=== PATIENT | female | born 1945 | race Hispanic/Latino ===

== ENCOUNTER → 2018-09-21 | Outpatient (CLI) | payer MEDICARE ==
[~2018-09-21] MED LIST: ALEN70TA10 PO; ASPI-1181 PO; ATOR40TA71 PO; CLOP75TA14 PO; FERS325 PO; ISOS30TA6 PO; LISI10TA7 PO; NAPR-1192 PO; PANT40TA25 PO; SERT50TA12 PO; TRAZ-185 PO
== END | disposition home or self-care (01) ==
LOC: RAH 10:08
PROVIDERS: ATTEND Orthopaedic Surgery
DX: S83.242A Other tear of medial meniscus, current injury, left knee, initial encounter (principal); M25.462 Effusion, left knee; M94.262 Chondromalacia, left knee; X58.XXXA Exposure to other specified factors, initial encounter; Y93.89 Activity, other specified; Y92.89 Other specified places as the place of occurrence of the external cause; Y99.8 Other external cause status
CPT/HCPCS: 73721

== ENCOUNTER 2018-12-11 06:51 | Day surgery (SDC) | payer MEDICARE ==
[2018-12-10 15:12] LABS: BASOPHILS % (AUTO) 1.2 % (0.0-5.0); EOSINOPHILS % (AUTO) 16.1 % (0.0-8.0); HEMATOCRIT 30.9 % (36-48); LYMPHOCYTES % (AUTO) 23.8 % (21.0-51.0); MEAN CORPUSCULAR HEMOGLOBIN 27.7 pg (27.0-33.0); MEAN CORPUSCULAR HGB CONC 32.9 g/dL (32.0-36.0); MEAN CORPUSCULAR VOLUME 84.4 fL (79-99); MONOCYTES % (AUTO) 9.2 % (3.0-13.0); NEUTROPHILS % (AUTO) 49.7 % (40.0-77.0); PLATELET COUNT (AUTO) 146 K/uL (130-400); RED BLOOD CELL COUNT(AUTO) 3.66 MIL/uL (4.00-5.50); WHITE BLOOD COUNT (AUTO) 5.6 K/uL (4.8-10.8)
[2018-12-10 15:20] LABS: CREATININE 0.8 mg/dL (0.5-1.5); POTASSIUM 3.6 mmol/L (3.5-5.1)
[2018-12-10 15:25] VITALS: BP 139/68
--- NOTE | 2018-12-10 17:33 | NUR ---
LAB ABNORMAL H&H REPORTE TO DR. GRISSOM. NO FURTHER ORDERS GIVEN
[2018-12-11] VITALS (18 sets, daily range): BP systolic 141–166; BP diastolic 55–71
[~2018-12-11] VITALS: Ht 154.9 cm; Wt 56.6 kg
[~2018-12-11 06:51] MED LIST changes: +ACET-66 PO; +CHOL100040 PO; -FERS325 PO; +FLUO20TA29 PO; -ISOS30TA6 PO; -NAPR-1192 PO; +NITR0.4T SL; -SERT50TA12 PO
[2018-12-11] MEDS ORDERED: LACTATED RINGERS 1000ML 1,000 ML IV ONE (08:26)
[2018-12-11] MEDS: CEFAZOLIN SODIUM 1 GM VIAL IVP ONE ×2 (08:37→09:40)
--- NOTE | 2018-12-11 08:40 | NUR ---
POTENTIAL F OR INFECTION: NO SHAVING NEEDED TO LEFT LEG / KNEE ASSESSED BY JUANITA GOMEZ RN. WIPED LEFT LEG / KNEE WITH CARRIE: 2% CHLORHEXIDINE CLOTH PATIENTS PRE-OP SKIN PREP PER JUANITA GOMEZ RN
[2018-12-11] MEDS ORDERED: LIDOCAINE PF 2% 5ML ABBOJECT ONE (08:48)
[2018-12-11] MEDS ORDERED: PROPOFOL 10 MG/ML 20ML VIAL IV ONE (08:48)
[2018-12-11] MEDS ORDERED: FENTANYL CITRATE PF 50 MCG/1 ML 2ML VIAL ONE (08:48)
[2018-12-11] MEDS ORDERED: EPHEDRINE SULFATE 50 MG/ML AMPULE ONE (09:28)
[2018-12-11] MEDS ORDERED: KETOROLAC TROMETHAMINE 30MG/ML ONE (10:01)
[2018-12-11] MEDS ORDERED: ONDANSETRON HCL 4 MG/2 ML VIAL ONE (10:01)
[2018-12-11] MEDS ORDERED: TYL3 PO (10:17)
[2018-12-11] MEDS ORDERED: CEPH500B PO (10:17)
--- NOTE | 2018-12-11 11:18 | NUR ---
ASSESSMENT RECEIVED PT FROM PACU STAFF HELADIO RN. DRSG TO RIGHT KNEE DRY AND INTACT. NO BLEEDING, OOZING NOTED TO SITE. ICE PACK APPLIED TO LEFT KNEE. INSTRUCTIONS GIVEN TO PT AND PTS DAUGHTER ON USE OF PACK. BOTH VERBALIZED UNDERSTANDING.
--- NOTE | 2018-12-11 12:15 | NUR ---
DISCHARGE ORAL AND WRITTEN DISCHARGE INSTRUCTIONS GIVEN TO PT AND PTS DAUGHTER ALONG WITH PRESCRIPTION. CRUTCHES GIVEN TO PTS DAUGHTER WELL. NO OTHER QUESTIONS AT THIS TIME.
== END 2018-12-11 12:18 | disposition home or self-care (01) ==
LOC: DAH 06:51
PROVIDERS: ATTEND Orthopaedic Surgery
DX: S83.242A Other tear of medial meniscus, current injury, left knee, initial encounter (principal); M94.262 Chondromalacia, left knee; I25.10 Atherosclerotic heart disease of native coronary artery without angina pectoris; I10 Essential (primary) hypertension; I25.2 Old myocardial infarction; M19.90 Unspecified osteoarthritis, unspecified site; F32.9 Major depressive disorder, single episode, unspecified; E11.9 Type 2 diabetes mellitus without complications; H91.90 Unspecified hearing loss, unspecified ear; R06.02 Shortness of breath; Z79.82 Long term (current) use of aspirin; Z79.899 Other long term (current) drug therapy; Z95.5 Presence of coronary angioplasty implant and graft; Z90.710 Acquired absence of both cervix and uterus; Z98.890 Other specified postprocedural states; W19.XXXA Unspecified fall, initial encounter; Y93.89 Activity, other specified; Y92.89 Other specified places as the place of occurrence of the external cause; Y99.8 Other external cause status
CPT/HCPCS: 29881; 36415; 80048; 82948 ×2; 85025; 93005; A4215; A4221; A4222; A4223; A4606; A4649 ×2; A4930; A5120; A6223; J0690; J1885; J2001; J2405; J2704; J3010; J3490; J7120 ×2

== ENCOUNTER 2023-11-24 11:00 | Inpatient (IN) | payer MEDICARE ==
[~2023-11-24] VITALS: Ht 154.9 cm; Wt 57.6 kg
[2023-11-24 10:24] VITALS: BP 184/78; PULSE 55; RESP 18; TEMP 98.3
[2023-11-24 10:29] LABS: BASOPHILS # (AUTO) 0.04 K/uL (0.00-0.20); BASOPHILS % (AUTO) 0.7 % (0.0-5.0); EOSINOPHILS # (AUTO) 0.72 K/uL (0.00-0.70); EOSINOPHILS % (AUTO) 12.1 % (0.0-8.0); HEMATOCRIT 39.8 % (36-48); IMMATURE GRANULOCYTE ABSOLUTE 0.02 K/uL (0-1); LYMPHOCYTES # (AUTO) 1.4 K/uL (1.0-4.8); LYMPHOCYTES % (AUTO) 23.2 % (21.0-51.0); MEAN CORPUSCULAR HEMOGLOBIN 30.8 pg (27.0-33.0); MEAN CORPUSCULAR HGB CONC 32.2 g/dL (32.0-36.0); MEAN CORPUSCULAR VOLUME 95.7 fL (79-99); MONOCYTES # (AUTO) 0.5 K/uL (0.1-1.0); MONOCYTES % (AUTO) 7.6 % (3.0-13.0); NEUTROPHILS # (AUTO) 3.4 K/uL (1.8-7.7); NEUTROPHILS % (AUTO) 56.1 % (40.0-77.0); PLATELET COUNT (AUTO) 141 K/uL (130-400); RED BLOOD CELL COUNT(AUTO) 4.16 MIL/uL (4.00-5.50)
[2023-11-24 10:38] LABS: ALBUMIN 3.4 g/dL (3.5-5.0); CARBON DIOXIDE 32 mmol/L (21-32); CHLORIDE 107 mmol/L (101-111); CREATININE 0.9 mg/dL (0.5-1.0); GLOMERULAR FILTR. RATE CALC 65 mL/min (>90); GLUCOSE,RANDOM 94 mg/dL (70-105); POTASSIUM 4.1 mmol/L (3.5-5.1); SODIUM SERUM 142 mmol/L (136-145); UREA NITROGEN, BLOOD 12 mg/dL (7-18)
[2023-11-24 10:40] LABS: INR 1.06 (0.85-1.15); PROTHROMBIN TIME 11.4 SEC (9.6-11.6)
[2023-11-24 10:42] LABS: PARTIAL THROMBOPLASTIN TIME 26.5 SEC (26.3-35.5)
[2023-11-24 10:46] LABS: APPEARANCE,URINE CLOUDY (CLEAR); BILIRUBIN,URINE NEGATIVE (NEGATIVE); COLOR,URINE LIGHT-YELLOW (YELLOW); GLUCOSE, URINE (UA) NEGATIVE (NEGATIVE); KETONES,URINE NEGATIVE (NEGATIVE); LEUKOCYTE ESTERASE ,URINE NEGATIVE Leu/uL (NEGATIVE); NITRATE,URINE NEGATIVE (NEGATIVE); OCCULT BLOOD,URINE MODERATE (NEGATIVE); PH,URINE 7.5 (5.0-8.0); PROTEIN,URINE 50 mg/dL (NEGATIVE); UROBILINOGEN,URINE 0.2 mg/dL (0.2-1.0)
[2023-11-24 10:50] LABS: ADD UA MICROSCOPIC YES
[2023-11-24 10:52] LABS: BACTERIA,URINE RARE /HPF (None Seen); MUCUS,URINE RARE LPF (None Seen); RBC,URINE 51-100 /HPF (0-1)
[~2023-11-24 11:00] MED LIST changes: -ACET-66 PO; -ALEN70TA10 PO; -ASPI-1181 PO; +ASPI-1443 PO; -ATOR40TA71 PO; -CHOL100040 PO; -CLOP75TA14 PO; -LISI10TA7 PO; -NITR0.4T SL; -PANT40TA25 PO; +PANT40TA54 PO
[2023-11-24] MEDS ORDERED: FERR324T9 PO (11:12)
[2023-11-24] MEDS ORDERED: LISI5TAB21 PO (11:12)
[2023-11-24] MEDS ORDERED: ROSU40TA88 PO (11:12)
[2023-11-24] MEDS ORDERED: CLOP75TA32 PO (11:13)
[2023-11-26] VITALS (27 sets, daily range): BP systolic 97–177; BP diastolic 44–63; PULSE 50–83; RESP 14–19; TEMP 97.3–97.8; O2SAT 97–99
[2023-11-26] MEDS: LACTATED RINGERS 1000ML 1,000 ML IV ONE (07:58)
[2023-11-26] MEDS: ceFAZolin SODIUM 2 GM VIAL ONE (07:59)
[2023-11-26] MEDS ORDERED: LISI10TA24 PO (08:13)
[2023-11-26] MEDS ORDERED: proPOFol 10 MG/ML 20ML VIAL IV ONE (08:25)
[2023-11-26] MEDS ORDERED: LIDOCAINE PF 100MG/5ML (2%) SYRINGE 5ML ONE (08:25)
[2023-11-26] MEDS ORDERED: FENTanyl CITRate PF 50 MCG/1 ML 2ML VIAL ONE (08:25)
[2023-11-26] MEDS ORDERED: rocuRONium bROMide 10MG/1ML 5ML VL ONE (08:25)
[2023-11-26] MEDS ORDERED: ketaMINE 50MG/ML SYRINGE 50 MG/ML DISP.SYRIN ONE (08:28)
[2023-11-26] MEDS: acetaMINOPHEN 1,000 MG/100 ML VIAL IV ONE (08:32)
[2023-11-26] MEDS: FAMOTIDINE 20MG VIAL IV ONE (08:32)
[2023-11-26] MEDS ORDERED: ROPivacaine 0.5% 5MG/ML 30ML ONE (08:53)
[2023-11-26] MEDS ORDERED: ONDANSETRON 4MG INJ ONE (09:34)
[2023-11-26] MEDS ORDERED: dexaMETHasone SOD PHOSPHATE 10MG/ML 1ML VIAL ONE (09:34)
[2023-11-26] MEDS ORDERED: GLYCOPYRROLATE 0.2 MG/ML 5 ML VIAL ONE (09:44)
[2023-11-26] MEDS ORDERED: NEOSTIGMINE METHYLSULFATE 1MG/ML IV ONE (09:44)
[2023-11-26] MEDS: TRANEXAMIC ACID 1000MG/10ML ONE (09:45)
[2023-11-26] MEDS: ketOROlac 30MG VIAL (30MG/ML) ONE (10:03)
[2023-11-26] MEDS: ROPivacaine 0.5% 5MG/ML 30ML ONE (10:04)
[2023-11-26] MEDS ORDERED: ePHEDrine SULFate 50 MG/ML AMPULE ONE (10:21)
[2023-11-26] MEDS: SUGAMMADEX SODIUM 200 MG/2 ML VIAL IV ONE (11:04)
[2023-11-26] MEDS ORDERED: FERROUS FUMARATE 324 MG TABLET PO PRN (11:30)
[2023-11-26] MEDS ORDERED: CALCIUM CARB 500MG PO PRN (11:30)
[2023-11-26] MEDS ORDERED: POTASSIUM CHLORIDE 20MEQ/100ML 100 ML IV PRN (11:30)
[2023-11-26] MEDS ORDERED: ONDANSETRON 4MG INJ IVP PRN (11:30)
[2023-11-26] MEDS ORDERED: KCL 20 MEQ ERTAB PO PRN (11:30)
[2023-11-26] MEDS: 0.9%NACL 1000ML 1,000 ML IV SCH (11:30)
[2023-11-26] MEDS ORDERED: POTASSIUM CHLORIDE 10% ELIXIR 20 MEQ/15 ML UDCUP PO PRN (11:30)
[2023-11-26] MEDS: ketOROlac 15MG/ML VIAL (15MG/ML) ONE (11:46)
[2023-11-26] MEDS: ketOROlac 15MG/ML VIAL (15MG/ML) IV SCH (11:46)
[2023-11-26] MEDS: GABApentin 100 MG CAPSULE PO SCH (14:09)
[2023-11-26] MEDS: HYDROcodone/APAP 5/325 1 TAB TABLET PO PRN (16:55)
[2023-11-26] MEDS: ceFAZolin SODIUM 2 GM VIAL IVPB SCH (16:56)
[2023-11-26] MEDS: doCUSate SODIUM 100 MG CAP PO SCH (20:18)
[2023-11-26] MEDS: trAZOdone HCL 50 MG TAB PO SCH (20:18)
[2023-11-26] MEDS: atorVAStatin 40 MG TABLET PO SCH (20:18)
[2023-11-26] MEDS: FERROUS FUMARATE 324 MG TABLET PO SCH (20:19)
[2023-11-27] VITALS (7 sets, daily range): BP systolic 117–147; BP diastolic 45–62; PULSE 59–67; RESP 16–18; TEMP 97.8–100.5; O2SAT 92–97
[2023-11-27 03:56] LABS: HEMATOCRIT 27.2 % (36-48); MEAN CORPUSCULAR HEMOGLOBIN 30.6 pg (27.0-33.0); MEAN CORPUSCULAR HGB CONC 33.1 g/dL (32.0-36.0); MEAN CORPUSCULAR VOLUME 92.5 fL (79-99); RED BLOOD CELL COUNT(AUTO) 2.94 MIL/uL (4.00-5.50); RED CELL DISTRIBUTION WIDTH 12.9 % (11.0-15.5); WHITE BLOOD COUNT (AUTO) 11.6 K/uL (4.8-10.8)
[2023-11-27 04:17] LABS: CREATININE 0.9 mg/dL (0.5-1.0); POTASSIUM 4.2 mmol/L (3.5-5.1)
[2023-11-27] MEDS: FLUoxetine HCL 20 MG CAPSULE PO SCH (10:03)
[2023-11-27] MEDS: ASPIRIN 325MG EC TAB PO SCH (10:03)
[2023-11-27] MEDS: PANTOPRAZOLE 40 MG TAB DR PO SCH (10:04)
[2023-11-27] MEDS: polyETHYLene GLYCol 3350 17 GM POWD.PACK PO SCH (10:04)
[2023-11-27] MEDS: LISINOPRIL 10 MG TABLET PO SCH (10:04)
[2023-11-28] VITALS (9 sets, daily range): BP systolic 115–168; BP diastolic 46–69; PULSE 60–77; RESP 18–20; TEMP 97.8–99.9; O2SAT 94–96
[2023-11-28] MEDS: HYDROcodone/APAP 5/325 1 TAB TABLET PO PRN (00:51)
[2023-11-28] MEDS: ketOROlac 15MG/ML VIAL (15MG/ML) IV PRN (09:23)
[2023-11-28] MEDS: ASPIRIN 81 MG EC TAB PO SCH (09:26)
[2023-11-28] MEDS: CLOPIDOGREL 75MG TAB PO SCH (09:26)
[2023-11-28] MEDS: traMADol HCL 50 MG TABLET PO PRN (09:27)
[2023-11-28] MEDS: CYCLOBENZAPRINE HCL 10 MG TABLET PO PRN (12:58)
[2023-11-29] VITALS: BP 146/44; PULSE 65; RESP 16; TEMP 98.4
[2023-11-29 04:00] VITALS: BP 130/51; PULSE 75; RESP 18; TEMP 98.6
[2023-11-29 07:25] VITALS: BP 127/55; PULSE 72; RESP 18; TEMP 98.3
[2023-11-29 08:00] VITALS: O2SAT 99
[2023-11-29] MEDS ORDERED: DONE-51 PO (08:42)
[2023-11-29 11:20] VITALS: BP 148/61; PULSE 75; RESP 18; TEMP 98.5
[2023-11-29] MEDS ORDERED: BisaCODYL 10 MG SUPP.RECT RC PRN (11:30)
[2023-11-29] MEDS ORDERED: DOCU-116 PO (14:37)
[2023-11-29] MEDS ORDERED: CYCL-309 PO (14:37)
[2023-11-29] MEDS ORDERED: HYDR-4060 PO (14:37)
[2023-11-29 15:20] VITALS: BP 124/48; PULSE 76; RESP 18; TEMP 98.4
[2023-11-29 15:30] LABS: APPEARANCE,URINE CLEAR (CLEAR); BILIRUBIN,URINE NEGATIVE (NEGATIVE); COLOR,URINE YELLOW (YELLOW); GLUCOSE, URINE (UA) NEGATIVE (NEGATIVE); KETONES,URINE NEGATIVE (NEGATIVE); LEUKOCYTE ESTERASE ,URINE NEGATIVE Leu/uL (NEGATIVE); NITRATE,URINE NEGATIVE (NEGATIVE); OCCULT BLOOD,URINE LARGE (NEGATIVE); PROTEIN,URINE 30 mg/dL (NEGATIVE); UROBILINOGEN,URINE 3 mg/dL (0.2-1.0)
[2023-11-29 15:33] LABS: ADD UA MICROSCOPIC YES
[2023-11-29 15:35] LABS: BACTERIA,URINE RARE /HPF (None Seen); MUCUS,URINE RARE LPF (None Seen); SQUAMOUS EPITHELIAL CELL,UR RARE /HPF (0-2); WBC,URINE 0-1 /HPF (0-1)
== END 2023-11-29 18:55 | DRG 470 ==
LOC: OBSVTOIN 11-26 06:15 → DAHIP 11-26 06:15 → 4CH 11-26 12:45 → UNDODISIN 11-28 18:00
PROVIDERS: ADMIT Student in an Organized Health Care Education/Training Program; ATTEND Student in an Organized Health Care Education/Training Program
PROC: 0SRC069 Replacement of Right Knee Joint with Oxidized Zirconium on Polyethylene Synthetic Substitute, Cemented, Open Approach (ICD-10-PCS; principal; 2023-11-26 09:23)
DX: M17.11 Unilateral primary osteoarthritis, right knee (principal); D62 Acute posthemorrhagic anemia; G89.29 Other chronic pain; I10 Essential (primary) hypertension; E78.5 Hyperlipidemia, unspecified; Z90.710 Acquired absence of both cervix and uterus; Z79.899 Other long term (current) drug therapy
CPT/HCPCS: 36415; 73560; 80048; 81001; 82040; 84134; 85025; 85027; 85610; 85730; 86140; 87086; 87641; G0378; J1100; J1885; J2001; J2405; J2704; J2710; J2795; J3010; J3490; J7120; A4215; A4216; A4221; A4222; A4223; A4649; A4663; A4930; A5120; A6255; C1713; C1776; G0168; J0690